=== PATIENT | male | born 1960 | race Caucasian/White ===

== ENCOUNTER 2021-03-14 11:12 | Observation (INO) | payer OTHER, SELFPAY ==
[2021-03-14] VITALS (12 sets, daily range): BP systolic 144–177; BP diastolic 91–121; PULSE 88–119; RESP 16–30; TEMP 36.4–36.9; O2SAT 95–98; BMI 32.5
--- NOTE | 2021-03-14 11:11 | DI.RAD.S_ITS ---
PROCEDURE: XR CHEST 1V INDICATIONS: chest pain, SOB TECHNIQUE: One view of the chest was acquired. COMPARISON: None. FINDINGS: Surgical changes and devices: None. Lungs and pleura: Lungs are clear. No pleural effusions or pneumothorax. Mediastinum: Mediastinal contours appear normal. Heart size is normal. Bones and chest wall: No suspicious bony lesions. Overlying soft tissues appear unremarkable. IMPRESSION: Normal for age, source of current chest pain symptoms is not seen. Dictated by: Harry Burch M.D. on 03/14/2021 at 11:53 Approved by: Harry Burch M.D. on 03/14/2021 at 11:54
--- NOTE | 2021-03-14 11:24 | ED_ITS ---
HPI - Chest Pain General Chief Complaint: Chest Pain Stated Complaint: SOB Time Seen by Provider: 03/14/21 11:13 Source: EMS Mode of arrival: EMS Limitations: no limitations History of Present Illness HPI narrative: 60-year-old male former smoker presents with a chief complaint of some episodes of shortness of breath last evening and recurrence this morning. He thought he was doing okay and went to work and symptoms recurred and he went to the medical tent at the [employer]. There he developed heaviness in chest pain and EMS was quickly activated. He had no obvious provocation or palliation of his pain and denies any radiation to his back, shoulders or neck. He states the pain was heavy and squeezing and had resolved prior to his arrival, apparently after aspirin and nitro by EMS. He complains of associated symptoms such as dizziness, diaphoresis and nausea which have since resolved. He denies any hi story of heart attack, recent travel, cancer. MD complaint: chest pain Onset (ago): minute(s) Duration: now resolved Onset: during rest Pain location: substernal Severity: moderate Quality: tightness, aching and heaviness Pain radiation: none Relieving factors: nitroglycerin Exacerbating factors: nothing Associated symptoms: nausea, diaphoresis and dyspnea Treatments prior to arrival chest pain: aspirin and nitroglycerin Related Data Allergies Allergy/AdvReac Type Severity Reaction Status Date / Time BEE VENOM Allergy Severe ANAPHALACTI Uncoded 03/14/21 11:18 C Review of Systems Constitutional Constitutional: Denies chills, Denies fatigue, Denies fever(s), Denies frequent falls, Denies lethargy and Denies weakness Comments: Diaphoresis Eyes Eyes: Denies change in vision, Denies eye discharge, Denies irritation and Denies loss of vision ENT Ears, Nose, Mouth, and Throat: Denies change in voice, Denies dizziness, Denies neck pain, Denies sore throat and Denies throat swelling Cardiovascular Cardiovascular: Reports chest pain, Denies irregular heart rhythm, Reports lightheadedness, Denies palpitations, Denies dyspnea, Reports dyspnea on exertion and Denies orthopnea Respiratory Respiratory: Denies cough, Denies dyspnea, Reports dyspnea on exertion and Denies wheezing Gastrointestinal Gastrointestinal: Denies abdominal pain, Denies change in bowel habits, Denies diarrhea, Denies nausea and Denies vomiting Musculoskeletal Musculoskeletal: Denies neck pain and Denies numbness Integumentary/Breasts Skin/Breast: Denies pruritus, Denies erythema, Denies rash and Denies wounds Neurologic Neurologic: Denies behavioral changes, Denies confusion, Denies dizziness, Denies frequent falls, Denies loss of vision, Denies numbness and Denies weakness Psychiatric Psychiatric: Denies anxiety, Denies behavioral changes, Denies confusion, Denies depression, Denies homicidal ideation and Denies suicidal ideation Endocrine Endocrine: Denies fatigue, Denies flushing and Denies palpitations Hematologic/Lymphatic Hematologic/Lymphatic: Denies easy bruising Allergic/Immunologic Allergic/Immunologic: Denies urticaria, Denies throat swelling and Denies wheezing Patient History Social History Smoking Status: Former smoker Smoking Status: Former smoker alcohol intake frequency: 0-2 drinks per day Alcohol type: beer Substance Use Type: does not use Exam Narrative Exam Narrative: GENERAL: [60] year old patient appears stated age. Well- nourished, well-developed patient, in mild distress. HEAD: Atraumatic. Normocephalic. EYES: Pupils equal round and reactive. Extraocular motions intact. No scleral icterus. No injection or drainage. ENT: Nose without bleeding, purulent drainage. Throat without erythema, tonsil lar hypertrophy or exudate. Airway patent. NECK: Trachea midline. Non tender CARDIOVASCULAR: Regular rate and rhythm without murmurs, gallops, or rubs. RESPIRATORY: Clear to auscultation. Breath sounds equal bilaterally. No wheezes, rales, or rhonchi. GASTROINTESTINAL: Abdomen soft, non-tender, nondistended. EXTREMITIES: No edema or joint tenderness. BACK: Nontender without deformity or crepitance. No flank tenderness. NEURO: AOx3. SKIN: No rash or erythema of visible areas Initial Vital Signs Initial Vital Signs: Vital Signs Temperature 98.5 F 03/14/21 11:16 Pulse Rate 119 H 03/14/21 11:16 Respiratory Rate 16 03/14/21 11:16 Blood Pressure 156/104 H 03/14/21 11:16 Pulse Oximetry 98 03/14/21 11:16 Scores HEART Score Heart Score history: Highly Suspicious Heart Score EKG: Normal Heart Score Age: 45-64 years old Heart Score risk factors: 1-2 risk factors Heart Score troponin: < or = to normal limit Heart Score Total: 4 Course Orders Ordered: ED Orders 03/14/21 11:11 XR chest 1V Stat EKG-12 Lead Stat 03/14/21 11:30 COVID19 - ADMIT ([employer]IST SALES swab/PCR) Stat 03/14/21 13:13 Complete Blood Count AUTO DIFF Stat Comprehensive Metabolic Panel Stat D Dimer Stat Lipase Stat NT-proBNP (BNP-Adult 18+) Stat Troponin & CK Cardiac Panel Stat 03/14/21 14:49 Education, smoking cessation ONGOING 03/14/21 19:00 Troponin I Routine 03/15/21 Basic Metabolic Panel Routine Complete Blood Count AUTO DIFF Routine 03/15/21 02:00 Troponin I Routine Acetaminophen (Acetaminophen 325 Mg Tablet) 650 mg PO Q6HR PRN PRN Reason: Fever/Mild Pain (1-3) Sodium Chloride (Normal Saline 0.9%) 1,000 mls @ 150 mls/hr IV CONT ADALID Last Infusion: 03/14/21 13:49 Dose: 0 mls/hr Documented by: Admin: 03/14/21 11:43 Dose: 150 mls/hr Documented by: CYNDEE Naloxone HCl (Naloxone 0.4 Mg/Ml Vial) 0.2 mg IV Q2MIN PRN PRN Reason: Opiate Reversal Discontinued Medications Aspirin (Aspirin 81 Mg Chew Tab) 324 mg PO NOW ONE Stop: 03/14/21 11:12 Last Admin: 03/14/21 12:00 Dose: Not Given Documented by: CYNDEE Vital Signs Vital signs: Vital Signs - 8 hr 03/14/21 11:16 03/14/21 13:09 03/14/21 13:11 Temperature 98.5 F Pulse Rate 119 H 99 H 104 H Respiratory Rate 16 16 22 Blood Pressure 156/104 H 157/92 H Pulse Oximetry 98 98 98 03/14/21 13:30 03/14/21 13:54 Temperature Pulse Rate 95 H 102 H Respiratory Rate 20 19 Blood Pressure 145/91 H 158/94 H Pulse Oximetry 95 98 MDM - Chest Pain Lab Data Result diagrams: 03/14/21 13:13 03/14/21 13:13 Labs: Lab Results 03/14/21 03/14/21 03/14/21 Range/Units 11:30 13:13 13:13 WBC 5.7 (4.5-11.0) X10^3/uL RBC 4.47 L (4.5-5.9) X10^6/uL Hgb 13.6 (13.5-17.5) g/dL Hct 40.2 L (41-53) % MCV 89.8 (80-100) fL MCH 30.4 (26-34) PG MCHC 33.8 (30-36) % RDW 15.9 H (11.6-14.8) % Plt Count 233 (150-400) X10^3/uL Neut % (Auto) 61.3 (50-75) % Lymph % (Auto) 24.6 L (25-40) % [place] % (Auto) 10.9 (3-14) % Eos % (Auto) 0.7 L (2-4) % Baso % (Auto) 2.5 H (0-2) % Neut # (Auto) 3500 (5701-4441) /uL Lymph # (Auto) 1400 (1385-4852) /uL [place] # (Auto) 600 (0-900) /uL Eos # (Auto) 0 (0-450) /uL Baso # (Auto) 100 (0-100) /uL D-Dimer < 200 (<230) ng/mL Sodium (137-145) mmol/L Potassium (3.4-5.1) mmol/L Chloride (98-107) mmol/L Carbon Dioxide (22-32) mmol/L BUN (9-20) mg/dL Creatinine (0.66-1.25) mg/dL Estimated GFR (>60) mL/min BUN/Creatinine Ratio (6-22) Glucose (70-100) mg/dL Calcium (8.4-10.2) mg/dL Total Bilirubin (0.2-1.3) mg/dL AST (17-59) IU/L ALT (<50) IU/L Alkaline Phosphatase (38-126) U/L Total Creatine Kinase (55-170) U/L Troponin I (0.01-0.034) ng/mL NT-Pro-B Natriuret Pep (<125) pg/mL Total Protein (6.3-8.2) g/dL Albumin (3.5-5.0) g/dL Globulin (1.7-4.1) g/dL Albumin/Globulin Ratio (1.0-2.8) Lipase (23-300) U/L SARS-CoV-2 (PCR) Negative (Negative) 03/14/21 Range/Units 13:13 WBC (4.5-11.0) X10^3/uL RBC (4.5-5.9) X10^6/uL Hgb (13.5-17.5) g/dL Hct (41-53) % MCV (80-100) fL MCH (26-34) PG MCHC (30-36) % RDW (11.6-14.8) % Plt Count (150-400) X10^3/uL Neut % (Auto) (50-75) % Lymph % (Auto) (25-40) % [place] % (Auto) (3-14) % Eos % (Auto) (2-4) % Baso % (Auto) (0-2) % Neut # (Auto) (9182-0260) /uL Lymph # (Auto) (4947-4727) /uL [place] # (Auto) (0-900) /uL Eos # (Auto) (0-450) /uL Baso # (Auto) (0-100) /uL D-Dimer (<230) ng/mL Sodium 137 (137-145) mmol/L Potassium 3.5 (3.4-5.1) mmol/L Chloride 105 (98-107) mmol/L Carbon Dioxide 23 (22-32) mmol/L BUN 9 (9-20) mg/dL Creatinine 0.77 (0.66-1.25) mg/dL Estimated GFR > 60.0 (>60) mL/min BUN/Creatinine Ratio 11.7 (6-22) Glucose 101 H (70-100) mg/dL Calcium 8.4 (8.4-10.2) mg/dL Total Bilirubin 0.7 (0.2-1.3) mg/dL AST 53 (17-59) IU/L ALT 53 H (<50) IU/L Alkaline Phosphatase 88 (38-126) U/L Total Creatine Kinase 371 H (55-170) U/L Troponin I 0.029 (0.01-0.034) ng/mL NT-Pro-B Natriuret Pep 595 H (<125) pg/mL Total Protein 6.9 (6.3-8.2) g/dL Albumin 4.1 (3.5-5.0) g/dL Globulin 2.8 (1.7-4.1) g/dL Albumin/Globulin Ratio 1.5 (1.0-2.8) Lipase 98 (23-300) U/L SARS-CoV-2 (PCR) (Negative) Discharge Plan Departure Patient Disposition: Admitted as Observation Clinical Impression: Chest pain Qualifiers: Chest pain type: unspecified Qualified Code(s): R07.9 - Chest pain, unspecified
--- NOTE | 2021-03-14 11:24 | PC.NURSE ---
tammie received 324 asa and one shot of nitro in ambulance. Provider canceled 324asa to be given in hospital.
[2021-03-14] MEDS: SODIUM CHLORIDE 0.9% 1,000 ML 150 ML IV (11:43)
[2021-03-14 13:20] LABS: Add Manual Diff / Slide Review NO; Basophils Absolute Auto 100 /uL (0-100); Basophils Percent Auto 2.5 % (0-2); Eosinophils Absolute Auto 0 /uL (0-450); Eosinophils Percent Auto 0.7 % (2-4); Hematocrit 40.2 % (41-53); Hemoglobin 13.6 g/dL (13.5-17.5); Lymphocytes Absolute Auto 1400 /uL (1100-4500); Lymphocytes Percent Auto 24.6 % (25-40); Mean Corpuscular HGB Conc 33.8 % (30-36); Mean Corpuscular Hemoglobin 30.4 PG (26-34); Mean Corpuscular Volume 89.8 fL (80-100); Monocytes Absolute Auto 600 /uL (0-900); Monocytes Percent Auto 10.9 % (3-14); Neutrophils Absolute Auto 3500 /uL (1500-7000); Neutrophils Percent Auto 61.3 % (50-75); Platelet Count 233 X10^3/uL (150-400); Red Blood Cell Count 4.47 X10^6/uL (4.5-5.9); Red Cell Distribution Width 15.9 % (11.6-14.8); White Blood Cell Count 5.7 X10^3/uL (4.5-11.0)
[2021-03-14 13:29] LABS: D Dimer < 200 ng/mL (<230)
[2021-03-14 13:32] LABS: Alanine Aminotransferase 53 IU/L (<50); Albumin 4.1 g/dL (3.5-5.0); Albumin Globulin Ratio 1.5 (1.0-2.8); Alkaline Phosphatase 88 U/L (38-126); Aspartate Aminotransferase 53 IU/L (17-59); BUN Creatinine Ratio 11.7 (6-22); Bilirubin Total 0.7 mg/dL (0.2-1.3); Blood Urea Nitrogen 9 mg/dL (9-20); Calcium 8.4 mg/dL (8.4-10.2); Carbon Dioxide 23 mmol/L (22-32); Chloride 105 mmol/L (98-107); Creatine Kinase 371 U/L (55-170); Estimated Glomerular Filt Rate > 60.0 mL/min (>60); Globulin 2.8 g/dL (1.7-4.1); Glucose 101 mg/dL (70-100); HEMOLYSIS < 15 (0-50); Lipase 98 U/L (23-300); Potassium 3.5 mmol/L (3.4-5.1); Sodium 137 mmol/L (137-145); Total Protein 6.9 g/dL (6.3-8.2)
[2021-03-14 13:44] LABS: NT-proBNP (BNP-Adult 18+) 595 pg/mL (<125); Troponin I 0.029 ng/mL (0.01-0.034)
[2021-03-14 14:05] LABS: COVID19 - ADMIT (NP swab/PCR) Negative (Negative)
[2021-03-14 14:59] LABS: CKMB % Relative Index 1.1 % (1.5-5.0); Creatine Kinase MB 4.18 ng/mL (<2.37)
[2021-03-14 20:01] LABS: Troponin I 0.032 ng/mL (0.01-0.034)
--- NOTE | 2021-03-14 21:36 | P.HP_ITS ---
History of Present Illness History of Present Illness Date Patient Seen: 03/14/21 Time Patient Seen: 15:37 Chief complaint: SOB Narrative: Mr. Julien is a 60M with PMH of former smoker who comes in with chest discomfort and shortness of breath. He had a first episode overnight when he woke, then resolved with nitro. He then developed a second episode this morning. He had heaviness in his chest, squeezing pain. He did call EMS and his symptoms resolved prior to aspirin and nitro. He did have dizziness and diaphoresis. He had similar symptoms a year ago for which he apparently did undergo stress test and angiogram which he says showed no acute findings. He has also noted significant stress recently and some anxiety related to that. In the ER he was noted to have tachycardia. Labs notable for unremarkable CBC and BMP. Initial troponin was 0.029, BNP 595. EKG showed no acute ischemia. He was given aspirin and admitted for further treatment. Patient History Family & Social History Family History (Updated 03/14/21 @ 21:44 by Sedrick Quick MD) Father Coronary artery disease Social History: household members other Prior Living Arrangements Apartment/Condo Safety & Behavioral: Feels Safe in Current Yes Environment Been Physically Hurt or No Threatened By a Person Suicidal Ideation Description None Suicide Plan Description No Plan Tobacco & Substance use: Smoking Status Former smoker alcohol intake frequency 0-2 drinks per day Substance Use Type does not use Meds Home Medications and Allergies Home Medications Medication Instructions Recorded Confirmed Type omeprazole magnesium [Prilosec OTC] 20 mg PO DAILY 03/14/21 03/14/21 History Allergies Allergy/AdvReac Type Severity Reaction Status Date / Time BEE VENOM Allergy Severe ANAPHALACTI Uncoded 03/14/21 11:18 C Review of Systems Review of Systems Narrative: 14 systems reviewed and negative aside from what is noted in HPI Exam Vital Signs (past 8 hours): - 03/14/21 13:54 03/14/21 14:00 03/14/21 14:30 Temperature Pulse Rate 102 H 99 H 92 H Respiratory Rate 19 17 19 Blood Pressure 158/94 H 155/94 H 161/98 H Pulse Oximetry 98 98 97 03/14/21 15:00 03/14/21 15:30 03/14/21 16:00 Temperature Pulse Rate 92 H 93 H 91 H Respiratory Rate 30 H 27 H 20 Blood Pressure 167/121 H 174/110 H 161/92 H Pulse Oximetry 97 97 96 03/14/21 16:35 03/14/21 20:48 Temperature 97.8 F 97.6 F Pulse Rate 91 H 88 Respiratory Rate 20 19 Blood Pressure 177/104 H 144/105 H Pulse Oximetry 98 98 Oxygen Delivery Method Room Air Oxygen Flow Rate 0 Narrative Exam Narrative: GEN: anxious, no acute distress HEENT: PERRL, moist mucous membranes NECK: no jvd, trachea midline CV: RRR with no murmurs PULM: clear bilaterally with no wheezes, rhonchi, rales ABD: soft, nontender, nondistended, no organomegaly, normal bowel sounds EXT: warm and well perfused with no edema NEURO: AAOx3, moving all extremities PSYCH: axnious, pleasant SKIN: no rashes noted Objective Labs Result Diagrams: 03/14/21 13:13 03/14/21 13:13 Labs: Laboratory Results - last 24 hr 03/14/21 03/14/21 03/14/21 11:30 13:13 13:13 WBC 5.7 RBC 4.47 L Hgb 13.6 Hct 40.2 L MCV 89.8 MCH 30.4 MCHC 33.8 RDW 15.9 H Plt Count 233 Neut % (Auto) 61.3 Lymph % (Auto) 24.6 L [place] % (Auto) 10.9 Eos % (Auto) 0.7 L Baso % (Auto) 2.5 H Neut # (Auto) 3500 Lymph # (Auto) 1400 [place] # (Auto) 600 Eos # (Auto) 0 Baso # (Auto) 100 D-Dimer < 200 Sodium Potassium Chloride Carbon Dioxide BUN Creatinine Estimated GFR BUN/Creatinine Ratio Glucose Calcium Total Bilirubin AST ALT Alkaline Phosphatase Total Creatine Kinase CK-MB (CK-2) CK-MB (CK-2) Rel Index Troponin I NT-Pro-B Natriuret Pep Total Protein Albumin Globulin Albumin/Globulin Ratio Lipase SARS-CoV-2 (PCR) Negative 03/14/21 03/14/21 13:13 19:06 WBC RBC Hgb Hct MCV MCH MCHC RDW Plt Count Neut % (Auto) Lymph % (Auto) [place] % (Auto) Eos % (Auto) Baso % (Auto) Neut # (Auto) Lymph # (Auto) [place] # (Auto) Eos # (Auto) Baso # (Auto) D-Dimer Sodium 137 Potassium 3.5 Chloride 105 Carbon Dioxide 23 BUN 9 Creatinine 0.77 Estimated GFR > 60.0 BUN/Creatinine Ratio 11.7 Glucose 101 H Calcium 8.4 Total Bilirubin 0.7 AST 53 ALT 53 H Alkaline Phosphatase 88 Total Creatine Kinase 371 H CK-MB (CK-2) 4.18 H CK-MB (CK-2) Rel Index 1.1 L Troponin I 0.029 0.032 NT-Pro-B Natriuret Pep 595 H Total Protein 6.9 Albumin 4.1 Globulin 2.8 Albumin/Globulin Ratio 1.5 Lipase 98 SARS-CoV-2 (PCR) Assessment & Plan Assessment & Plan narrative: Mr. Julien is a 60M with PMH GERD who presents with chest pain. 1. Chest pain -patient has risk factors with family history, former smoker, obesity -initial troponin negative -trend troponins -order aspirin and statin -nitro prn for pain -ordered for stress test -anxiety and social situation may be play a role in symptoms 2. Elevated blood pressure -continue to monitor -may need additional prescription for blood pressure medication 3. GERD -continue PPI 4. Obesity -outpatient dietary changes recommended CODE: DNR, proxy cecy father DVT ppx: lovenox sc DIET: Cardiac IVF: none Quality MIPS - Admit I confirm the patient?s Advance Care Plan is present, Code status is documented, Surrogate decision maker is in patient?s record [If Yes, STOP here]: Yes
[2021-03-15 01:35] VITALS: BP 149/103; PULSE 86; RESP 18; TEMP 36.3; O2SAT 98
--- NOTE | 2021-03-15 01:58 | PC.NURSE ---
Addendum entered by Clara Sosa R.N. 03/15/21 02:11: Hospitalist Alek was informed of pt's elevated blood pressure this evening shift as well as pt's report of 1/10 chest discomfort. Metoprolol ordered and given. Original Note: Pt wakens easily to staff entering pt's room. Moves self independently in bed and prefers to have scd's off for sleep. Discussion with pt re keeping legs moving to prevent blood clots while in hospital and less mobile. Pt up to bathroom to void, brushes teeth @ sink and returns to bed. Reports improvement in dyspnea. Prior to mobilization this keno writer / runner inquired if pt experiencing chest pain or pressure. Pt does not define discomfort as such, but states there's something in there and places left hand over chest above nipple. Rates 1/10 and states improved since admission to hospital.
[2021-03-15 02:35] VITALS: BP 149/103; PULSE 86
[2021-03-15] MEDS: lisinopriL 20 MG TABLET PO (02:35)
[2021-03-15 02:39] LABS: Add Manual Diff / Slide Review NO; Basophils Absolute Auto 100 /uL (0-100); Basophils Percent Auto 2.2 % (0-2); Eosinophils Absolute Auto 300 /uL (0-450); Eosinophils Percent Auto 4.4 % (2-4); Hemoglobin 13.8 g/dL (13.5-17.5); Lymphocytes Absolute Auto 2000 /uL (1100-4500); Lymphocytes Percent Auto 34.3 % (25-40); Mean Corpuscular HGB Conc 32.9 % (30-36); Mean Corpuscular Hemoglobin 29.6 PG (26-34); Mean Corpuscular Volume 90.1 fL (80-100); Monocytes Absolute Auto 700 /uL (0-900); Monocytes Percent Auto 11.4 % (3-14); Neutrophils Absolute Auto 2700 /uL (1500-7000); Neutrophils Percent Auto 47.7 % (50-75); Platelet Count 237 X10^3/uL (150-400); Red Blood Cell Count 4.66 X10^6/uL (4.5-5.9); Red Cell Distribution Width 16.4 % (11.6-14.8); White Blood Cell Count 5.8 X10^3/uL (4.5-11.0)
[2021-03-15 02:49] LABS: BUN Creatinine Ratio 10.2 (6-22); Blood Urea Nitrogen 9 mg/dL (9-20); Calcium 8.6 mg/dL (8.4-10.2); Carbon Dioxide 26 mmol/L (22-32); Chloride 103 mmol/L (98-107); Estimated Glomerular Filt Rate > 60.0 mL/min (>60); Glucose 104 mg/dL (70-100); HEMOLYSIS < 15 (0-50); Potassium 3.5 mmol/L (3.4-5.1); Sodium 137 mmol/L (137-145)
[2021-03-15 03:12] LABS: Troponin I 0.031 ng/mL (0.01-0.034)
[2021-03-15 05:00] VITALS: BP 154/92; PULSE 82; RESP 18; TEMP 36.8; O2SAT 96
[2021-03-15 07:52] VITALS: BP 137/97; PULSE 85; RESP 16; TEMP 36.7; O2SAT 97
[2021-03-15] MEDS: ATORVASTATIN 20 MG TABLET 40 MG PO (08:06)
[2021-03-15] MEDS: ASPIRIN EC 81 MG TABLET PO (08:07)
[2021-03-15] MEDS: ACETAMINOPHEN 325 MG TABLET 650 MG PO (08:07)
[2021-03-15] MEDS: SODIUM CHLORIDE 0.9% FLUSH 10 ML IV (08:07)
[2021-03-15 11:57] VITALS: BP 147/100; PULSE 87; RESP 16; TEMP 36.3; O2SAT 98
--- NOTE | 2021-03-15 12:36 | PC.NURSE ---
Addendum entered by Savana Mckeon R.N. 03/15/21 15:02: At 1410 pt returned to floor from stress test by Gus Tele placed by LEWIS. Original Note: Pt off unit for stress test, accompanied by Gus Juarez
--- NOTE | 2021-03-15 13:20 | PM.TREADMILL ---
Cardiac Stress Test Report Referral & Results Date Patient Seen: 03/15/21 Time Patient Seen: 13:20 Requesting provider: Jorge Luis Soto Indication: dyspnea Rest ECG: sinus rhythm Procedure Note: Standard Erik protocol, 4:06, 5.1 METS Reduced exercise capacity, MICHAEL +48% Normal hemodynamic response to exercise No chest pain or anginal symptoms; significant dyspnea with minimal exertion with SPO2 95% Motion artifact in limb leads at peak exercise No significant ST changes at peak exercise No ectopy Impression: normal exercise stress test Nuclear images pending Please note: Actual ECG tracings can be found in the PACS system.
[2021-03-15 14:44] VITALS: BP 121/86; PULSE 94
--- NOTE | 2021-03-15 15:26 | CM.DANOTE ---
DCP/Assessment: Reviewed chart. Patient is a 60yr old male admitted to [facility] with chest pain. PCP not listed. Primary payor is 1)[employer] Jeni. Met with patient this AM explained CM/SW role. Patient alert and oriented at time of visit. Patient reports that he works at [employer]. Patient resides in [place] and hopes to d/c home today. Stress test currently pending. Patient reports that he is independent with all ADL's. P: Home when stable. WALLACE Garcia Discharge Planning/Care Management CM Discharge Assessment Start: 03/15/21 14:43 Freq: Status: Active Protocol: Document 03/15/21 14:43 KJS (Rec: 03/15/21 15:26 KJS [id number]) Discharge Planning Assessment Assigned Marketing Systems Manager WALLACE Garcia Contact Information Gavi Pedersen (sister) # [phone] Advance Directives? No History Provided By Patient,Medical Record Has Patient been admitted in last 30 No days? Prior Living Arrangements Apartment/Condo Household Members other Type of transporation used prior to Drives own vehicle admit Independent with ADL's Yes Is patient alert and oriented? Yes Caregiver for Another No Barriers to Discharge No Discharge Plan Home Transportation Arrangement Family Referrals Initiated None needed Whiteboard Updated in Patient Room with Yes name and ext. # of Marketing Systems Manager Review Status In Process Next Review Type Continued Stay Review
--- NOTE | 2021-03-15 16:47 | PC.NURSE ---
Addendum entered by Iveth Madrigal R.N. 03/15/21 17:44: Pt escorted by staff via W/C to waiting vehicle. Discharged in stable condition. Addendum entered by Iveth Madrigal R.N. 03/15/21 17:28: DIscharge instructions and RX given to pt Awaiting transportation home. Original Note: Orders for discharge recieved. HL & tele discontinued.
--- NOTE | 2021-03-15 17:06 | DI.NM.S_ITS ---
PROCEDURE: Exercise treadmill stress and rest myocardial perfusion imaging with gating to assess ejection fraction and regional wall motion. DATE OF SERVICE: March 15, 2021 ORDERING PROVIDER: Sedrick Quick M.D. INDICATIONS: The patient is a 60-year-old male with exertional dyspnea and chest discomfort. CARDIAC STRESS: The patient was able to exercise for 4 minutes 3 seconds on a standard Erik protocol suggesting severely reduced exercise capacity with an MICHAEL of +48%. He had a normal heart rate response to exercise and a hypertensive blood pressure response with a resting blood pressure of 146/94, increasing to 210/110 at peak exercise. He had no chest discomfort or other anginal symptoms and had significant dyspnea despite oxygen saturations being in excess of 95%. His resting ECG is normal and while there is considerable motion artifact on his stress tracings, there are no obvious significant ST-segment shifts or arrhythmias with exercise or the early recovery tracings. At 3 minutes 15 seconds of exercise at a heart rate of 141 BPM, 23.9 millicuries of technetium-99m Myoview was injected. He was imaged 15 minutes later using a gated SPECT acquisition protocol. The day prior, he had been injected with 21.7 millicuries of technetium-99m Myoview and was imaged 30 minutes later, again using a gated SPECT acquisition protocol. FINDINGS: RAW DATA: There is moderate tracer uptake with considerable attenuation artifact noted on the raw data images. Lung/heart ratio was normal at 0.38 with a normal TID ratio 0.95. QUANTITATED GATED SPECT: Post-stress ejection fraction is estimated at 32%, although image quality is quite poor, reducing the specificity of this value. There are no obvious focal wall motion abnormalities. The resting ejection fraction is also estimated at 31% with a similar contraction pattern and a moderately increased end-diastolic volume of 198 mL. MYOCARDIAL PERFUSION IMAGING: Post-stress supine images show marginal image quality, but suggests a mild perfusion defect in the inferior wall in a pattern that would be consistent with diaphragmatic attenuation. This defect essentially resolves on the prone images, although image quality is somewhat poor. The resting images show a similar perfusion pattern without any obvious areas of significant improvement. IMPRESSION: 1. Normal myocardial perfusion imaging study for ischemia. 2. Mild fixed inferior defect that resolves on prone imaging, most consistent with diaphragmatic attenuation. There is no compelling evidence for myocardial ischemia or previous infarction. 3. Probable moderately reduced left ventricular systolic function in a global fashion with an EF of around 32% with mild left ventricular enlargement, although image quality is somewhat poor, reducing the specificity of this finding. Consider echocardiography for further assessment of ventricular size and function. 4. Severely reduced exercise capacity without angina or ECG evidence of ischemia with subjective dyspnea despite normal oxygen saturation. Samir Julien - BE/johnie/ibis doc#: [id number]/job#: [id number] dd: 03/15/2021 16:26:00 dt: 03/15/2021 16:50:00 DICTATING MD/COPIES TO: Dontrell Uribe MD; Sedrick Quick M.D. COPIES MNE: KAREN;
--- NOTE | 2021-03-15 22:49 | PM.DS.1 ---
History of Present Illness History of Present Illness Chief complaint: SOB Narrative: Mr. Julien is a 60M with PMH of former smoker who comes in with chest discomfort and shortness of breath. He had a first episode overnight when he woke, then resolved with nitro. He then developed a second episode this morning. He had heaviness in his chest, squeezing pain. He did call EMS and his symptoms resolved prior to aspirin and nitro. He did have dizziness and diaphoresis. He had similar symptoms a year ago for which he apparently did undergo stress test and angiogram which he says showed no acute findings. He has also noted significant stress recently and some anxiety related to that. In the ER he was noted to have tachycardia. Labs notable for unremarkable CBC and BMP. Initial troponin was 0.029, BNP 595. EKG showed no acute ischemia. He was given aspirin and admitted for further treatment. Discharge Providers Provider Date of admission: 03/14/21 14:55 Discharge Date: 03/15/21 Discharge provider: Sedrick Quick MD Summary Hospital Course Discharge Diagnosis: 1. Chest pain 2. Possible reduced ejection fraction noted on Nuclear stress test 3. Hypertension 4. GERD 5. Obesity 6. Anxiety Hospital Course: Mr. Julien came in with chest pain. This resolved while in the hospital. He did have negative troponins. No evidence of myocardial infarction on EKG. He was ordered for aspirin and statin. He underwent a stress test that was negative for ischemia. He did have possible reduced ejection fraction read as approximately 30% noted on stress test. Did discuss with cardiology and patient and as patient was back to his baseline he will be able to be discharged and follow up with outpatient ECHO. He should be restarted on his home medications of lisinopril and metoprolol which he stopped taking. He will be referred to cardiology and continued on aspirin and atorvastatin. Status at Discharge Cognitive/behavioral status at discharge: oriented Functional status at discharge: independent ambulation Overall status at discharge: patient is back to baseline Exam Vital Signs (past 8 hours): Oxygen Delivery Method Room Air Oxygen Flow Rate 0 Narrative Exam Narrative: GEN: anxious, no acute distress HEENT: PERRL, moist mucous membranes NECK: no jvd, trachea midline CV: RRR with no murmurs PULM: clear bilaterally with no wheezes, rhonchi, rales ABD: soft, nontender, nondistended, no organomegaly, normal bowel sounds EXT: warm and well perfused with no edema NEURO: AAOx3, moving all extremities PSYCH: axnious, pleasant SKIN: no rashes noted Objective Labs Result Diagrams: 03/15/21 02:20 03/15/21 02:20 ON LICENSE OF [facility] Family History (Updated 03/14/21 @ 21:44 by Sedrick Quick MD) Father Coronary artery disease Social History household members: other Smoking Status: Former smoker Discharge Plan Discharge Plan Patient Disposition: Home Provider Discharge Comment: Mr. Julien came in with chest pain. His EKG did not show any heart attack. His blood tests were negative for heart attack. His stress test showed no ischemia, but possibly a slightly large heart. He should follow up with cardiology and his PCP going forward. He was not sure which medications he was on during his stay here, called to his pharmacy and his medications had not been filled within the last few months. He did have high blood pressure here and should start back on his blood pressure medicines to protect his heart. He will be recommended to have an echocardiogram non urgently. Discharge orders & Medications Prescriptions: New aspirin 81 mg Tablet,Delayed Release (Dr/Ec) 81 mg PO DAILY Qty: 30 RF: 0 atorvastatin 40 mg tablet 40 mg PO BEDTIME Qty: 30 RF: 0 lisinopril 20 mg tablet 20 mg PO DAILY Qty: 30 RF: 0 metoprolol succinate 25 mg capsule,sprinkle,ER 24hr 12.5 mg PO DAILY Qty: 30 RF: 0 Continued omeprazole magnesium [Prilosec OTC] 20 mg Tablet,Delayed Release (Dr/Ec) 20 mg PO DAILY RF: 0 Diet/Activity/Treatments Diet: Low-fat, Low-sodium and Low-cholesterol Discharge Data Attending Provider: Sedrick Quick Quality [facility] [place] The patient has current or prior documentation of left ventricular ejection fraction (LVEF) less than 40%, or moderate or severely depressed left ventricular systolic function.: Yes A. The patient was prescribed or already taking an Angiotensin-Converting Enzyme (ANA) Inhibitor, or Angiotensin Receptor Puja (ARB).: Yes B. The patient was prescribed or already taking a beta-puja. [If Yes to Both A & B, STOP here]: Yes
== END 2021-03-15 17:45 | disposition home or self-care (01) ==
LOC: ED 14:10 → AC 15:38
PROVIDERS: Admitting Provider Internal Medicine; Emergency Provider Emergency Medicine; Referring Provider Emergency Medicine; Visit Provider Internal Medicine
DX: R07.9 Chest pain, unspecified (principal); R06.02 Shortness of breath; R42 Dizziness and giddiness; R61 Generalized hyperhidrosis; I10 Essential (primary) hypertension; F41.9 Anxiety disorder, unspecified; K21.9 Gastro-esophageal reflux disease without esophagitis; E66.9 Obesity, unspecified; Z20.822 Contact with and (suspected) exposure to COVID-19; Z87.891 Personal history of nicotine dependence
CPT/HCPCS: 36415; 71045; 78452; 80048; 80053; 82550; 82553; 83690; 83880; 84484; 85025; 85379; 87635; 93005; 93010; 93017; 96360; 96361; 99284; C9803; G0378; A9502